=== PATIENT | female | born 1980 | race Caucasian/White ===

== ENCOUNTER 2022-10-05 15:09 | Outpatient (CLI) | payer BC | END 2022-10-05 15:10 | disposition home or self-care (01) | LOC: CSHMAMMO 15:09 | PROVIDERS: ATTEND Obstetrics & Gynecology | DX: Z12.31 Encounter for screening mammogram for malignant neoplasm of breast (principal); Z80.3 Family history of malignant neoplasm of breast; Z91.89 Other specified personal risk factors, not elsewhere classified | CPT/HCPCS: 77063; 77067 ==

== ENCOUNTER 2023-10-22 | Outpatient (CLI) | payer BC | END 2023-10-22 09:09 | disposition home or self-care (01) | DX: Z12.31 Encounter for screening mammogram for malignant neoplasm of breast (principal); Z80.3 Family history of malignant neoplasm of breast; Z91.89 Other specified personal risk factors, not elsewhere classified ==

== ENCOUNTER 2024-07-10 15:05 | Outpatient (CLI) | payer OTHER | END 2024-07-10 15:06 | disposition home or self-care (01) | LOC: CSHCT 15:05 | PROVIDERS: ATTEND Nurse Practitioner Family | DX: E78.5 Hyperlipidemia, unspecified (principal) | CPT/HCPCS: 75571 ==